=== PATIENT | female | born 1955 | race Asian ===

== ENCOUNTER 2021-06-02 14:48 | Outpatient (CLI) | payer MEDICARE | END 2021-06-02 14:49 | disposition home or self-care (01) | LOC: CSHMAMMO 14:48 | PROVIDERS: ATTEND Family Medicine | DX: Z12.31 Encounter for screening mammogram for malignant neoplasm of breast (principal); M81.0 Age-related osteoporosis without current pathological fracture; M85.88 Other specified disorders of bone density and structure, other site | CPT/HCPCS: 77063; 77067; 77080 ==

== ENCOUNTER 2022-06-11 14:12 | Outpatient (CLI) | payer MEDICARE | END 2022-06-11 14:13 | disposition home or self-care (01) | LOC: CSHMAMMO 14:12 | PROVIDERS: ATTEND Family Medicine | DX: M81.0 Age-related osteoporosis without current pathological fracture (principal); M85.88 Other specified disorders of bone density and structure, other site | CPT/HCPCS: 77080 ==

== ENCOUNTER 2022-07-17 10:59 | Outpatient (CLI) | payer MEDICARE | END 2022-07-17 11:00 | disposition home or self-care (01) | LOC: CSHMAMMO 10:59 | PROVIDERS: ATTEND Family Medicine | DX: Z12.31 Encounter for screening mammogram for malignant neoplasm of breast (principal) | CPT/HCPCS: 77063; 77067 ==

== ENCOUNTER 2023-08-07 13:38 | Outpatient (CLI) | payer MEDICARE | END 2023-08-07 13:39 | disposition home or self-care (01) | LOC: CSHMAMMO 13:38 | PROVIDERS: ATTEND Family Medicine | DX: Z12.31 Encounter for screening mammogram for malignant neoplasm of breast (principal); M81.0 Age-related osteoporosis without current pathological fracture; M85.89 Other specified disorders of bone density and structure, multiple sites | CPT/HCPCS: 77063; 77067; 77080 ==

== ENCOUNTER 2024-01-10 12:05 | Emergency (ER) | payer MEDICARE ==
[2024-01-10] MEDS ORDERED: Famotidine/PF 20 mg/2ml Vial ONE (12:49)
[2024-01-10] MEDS ORDERED: methylPREDNISolone Sod Succ/PF 125 MG/2 ML VIAL ONE (12:49)
== END 2024-01-10 14:58 | disposition home or self-care (01) ==
LOC: CSHERS 12:05
DX: Z12.11 Encounter for screening for malignant neoplasm of colon (principal); Z12.12 Encounter for screening for malignant neoplasm of rectum; T78.2XXA Anaphylactic shock, unspecified, initial encounter; L23.4 Allergic contact dermatitis due to dyes; R10.13 Epigastric pain
CPT/HCPCS: 74183; 82565; 93005; 96374; 96375; 99285; J2930; S0028

== ENCOUNTER 2024-08-11 10:09 | Outpatient (CLI) | payer MEDICARE | END 2024-08-11 10:10 | disposition home or self-care (01) | LOC: CSHMAMMO 10:09 | PROVIDERS: ATTEND Family Medicine | DX: Z12.31 Encounter for screening mammogram for malignant neoplasm of breast (principal); M81.0 Age-related osteoporosis without current pathological fracture | CPT/HCPCS: 77063; 77067; 77080 ==